=== PATIENT | male | born 1980 | race Native Hawaiian/Other Pacific Islander ===

== ENCOUNTER 2020-01-16 13:17 | Outpatient (CLI) | payer OTHER ==
[2020-01-16 14:04] LABS: POTASSIUM 4.4 mmol/L (3.6-5.2)
[2020-01-16 14:06] LABS: PLATELET COUNT 237 K/uL (142-355)
== END 2020-01-16 20:07 | disposition home or self-care (01) ==
LOC: RAD 13:17
PROVIDERS: Nurse Practitioner Family
DX: M54.5 Low back pain (principal); Z83.42 Family history of familial hypercholesterolemia; L40.8 Other psoriasis; M06.4 Inflammatory polyarthropathy; M54.6 Pain in thoracic spine; M79.671 Pain in right foot
CPT/HCPCS: 36415; 80053; 80061; 84550; 85027; 85651; 86038; 86140; 86200; 86255; 86430